=== PATIENT | male | born 1940 | race Caucasian/White ===

== ENCOUNTER → 2017-12-14 | Day surgery (SDC) | payer MEDICARE ==
[2017-12-13 12:29] LABS: BASOPHILS # (AUTO) 0.1 X10'3 (0-0.2); BASOPHILS % (AUTO) 0.5 % (0-1); EOSINOPHILS # (AUTO) 0.5 X10'3 (0-0.9); EOSINOPHILS % (AUTO) 4.1 % (0-6); HEMATOCRIT 41.4 % (42.0-52.0); HEMOGLOBIN 13.9 g/dl (14.0-17.9); LYMPHOCYTES # (AUTO) 2.1 X10'3 (1.1-4.8); LYMPHOCYTES % (AUTO) 19.1 % (21-51); MEAN CORPUSCULAR HEMOGLOBIN 32.3 PG (27.0-31.0); MEAN CORPUSCULAR HGB CONC 33.6 % (33.0-36.5); MEAN CORPUSCULAR VOLUME 95.9 FL (78-98); MONOCYTES # (AUTO) 0.9 X10'3 (0-0.9); MONOCYTES % (AUTO) 8.5 % (2-12); NEUTROPHILS # (AUTO) 7.5 X10'3 (1.8-7.7); NEUTROPHILS % (AUTO) 67.8 % (42-75); PLATELET COUNT 210 X10'3 (140-440); RED BLOOD COUNT 4.32 X10'6 (4.70-6.10); RED CELL DISTRIBUTION WIDTH 14.9 % (11.5-14.5); WHITE BLOOD COUNT 11.1 X10'3 (4.5-11.0)
[2017-12-13 12:38] LABS: ALBUMIN 3.5 G/DL (3.4-5.0); ANION GAP 8 (8-16); BLOOD UREA NITROGEN 25 MG/DL (7-18); BUN/CREATININE RATIO 27.2 (5.4-32.0); CALCIUM 9.3 MG/DL (8.5-10.1); CHLORIDE 107 MMOL/L (99-107); CREATININE 0.92 MG/DL (0.60-1.10); GLUCOSE 87 MG/DL (70-104); POTASSIUM 4.3 MMOL/L (3.5-5.1); SODIUM 142 MMOL/L (135-145); TOTAL CARBON DIOXIDE 27.3 MMOL/L (24-32); eGFR 80 ML/MIN
[2017-12-13 12:39] LABS: PARTIAL THROMBOPLASTIN TIME 27 SECONDS (22-32); PROTHROMBIN TIME 10.7 SECONDS (9.0-12.0)
[~2017-12-14] VITALS: Ht 188 cm; Wt 104.2 kg
[2017-12-14] VITALS (12 sets, daily range): BP systolic 127–148; BP diastolic 57–82
[~2017-12-14] MED LIST: AMIO200T57 PO; APIX5TAB3 PO; ASPI-41 PO; ASPI-611 PO; ATOR10TA PO; CHOL100062 PO; CYAN1TAB41 PO; DIAZ2TAB PO; DOCU-261 PO; GABA-532 PO; HYDR-3972 PO; LEVO88TA2 PO; LIDOcaine 1% 30ml preserv. free vial ONE; LORazepam 0.5 MG tablet PO PRN; MAGN250T11 PO; METO-395 PO; METO50TA16 PO; NIAC500T9 PO; OMEG-182 PO; PREG225C PO; SAW450CA7 PO; diazepam 5mg tablet PO ONE; diazepam 5mg tablet PO PRN; diphenhydrAMINE 25mg capsule PO PRN; fentaNYL/PF 50MCG/1 ML 2ML syringe ONE; heparin 1,000unit/ml 10ml vial 10 ML ONE; iohexol 350 MG/ML 50ML vial IV ONE; iohexol 350MG/ML 100ml bottle IV ONE; midazolam 2 mg/2 ml injection ONE; nitroGLYCERIN-Tridil 50MG/D5W 250 ML IV ONE; normal saline 1000ml 1,000 ML IV SCH
[2017-12-14 20:11] LABS: ISTAT HGB ART 12.6 g/dl (14.0-18.0); ISTAT Hct ART 37 %PCV (42-52); ISTAT O2 SATURATION ARTERIAL 97 % (95-98); ISTAT SOURCE ART
[2017-12-14 20:11] LABS: ISTAT Hct MIX 38 %PCV (42-52); ISTAT O2 SATURATION MIX VENOUS 75 % (60-80); ISTAT SOURCE MIX
== END | disposition home or self-care (01) ==
LOC: SSTAY O 07:02
PROVIDERS: ATTEND Internal Medicine Cardiovascular Disease
DX: I25.810 Atherosclerosis of coronary artery bypass graft(s) without angina pectoris (principal); I35.1 Nonrheumatic aortic (valve) insufficiency; I48.1 Persistent atrial fibrillation; E78.5 Hyperlipidemia, unspecified; E11.9 Type 2 diabetes mellitus without complications; I11.0 Hypertensive heart disease with heart failure; I50.9 Heart failure, unspecified; E03.9 Hypothyroidism, unspecified; M19.90 Unspecified osteoarthritis, unspecified site; Z95.1 Presence of aortocoronary bypass graft; Z95.2 Presence of prosthetic heart valve; Z79.82 Long term (current) use of aspirin; Z87.891 Personal history of nicotine dependence; Z72.89 Other problems related to lifestyle; Z87.11 Personal history of peptic ulcer disease; Z96.653 Presence of artificial knee joint, bilateral; Z79.899 Other long term (current) drug therapy; Z98.890 Other specified postprocedural states
CPT/HCPCS: 36415; 80048; 82803; 82948; 85014; 85025; 85610; 85730; 93005; 93461; 93567; 99152; 99153; A6257; C1769; C1894; J1644; J2250; J3010; J3490; J7030; Q0163; Q9967; A4620